=== PATIENT | female | born 1950 | race Caucasian/White ===

== ENCOUNTER → 2019-07-01 | Day surgery (SDC) | payer MEDICARE ==
--- NOTE | 2019-06-25 10:47 | Diagnostic Imaging Report ---
EXAMINATION: CHEST 2 VIEWS INDICATION: Pre-operative COMPARISON: None FINDINGS: LINES/TUBES:None LUNGS:The lungs are well-inflated. No focal consolidation or pulmonary edema. PLEURA:No pleural effusion or pneumothorax. MEDIASTINUM:The cardiomediastinal silhouette appears normal in size and shape. BONES/SOFT TISSUES:Median sternotomy wires, all except for the superiormost wire demonstrate multiple breaks. No acute fracture. Degenerative changes of the visualized spine. ABDOMEN:No free air under the diaphragm. IMPRESSION: No focal pneumonia or pulmonary edema. Multiple breaks of all except the superiormost median sternotomy wire, of uncertain significance depending on chronicity of surgery. Signed by: Marlen Bueno MD on 06/25/2019 10:44 AM
[2019-06-25 11:37] LABS: BASOPHILS % 0.4 % (0.0-1.0); EOSINOPHILS # (AUTO) 0.3 (0.0-0.4); HEMATOCRIT 45.6 % (34.2-44.1); HEMOGLOBIN 14.2 g/dL (12.0-16.0); LYMPHOCYTES # (AUTO) 2.7 (1.0-3.2); MEAN CORPUSCULAR HGB CONC 31.1 g/dL (31-35); MEAN CORPUSCULAR VOLUME 89.9 fL (81-99); MONOCYTES # (AUTO) 0.9 (0.2-0.8); MONOCYTES % 10.4 % (4.4-11.3); NEUTROPHILS # (AUTO) 4.6 (2.1-6.9); NEUTROPHILS % 54.1 % (38.7-80.0); PLATELET COUNT 289 x10e3/uL (140-360); RED BLOOD COUNT 5.07 x10e6/uL (3.6-5.1); RED CELL DISTRIBUTION WIDTH 13.4 % (11.7-14.4)
[2019-06-25 11:59] LABS: ANION GAP 19.3 mmol/L (8-16); CALCIUM 9.7 mg/dL (8.4-10.2); CREATININE, SERUM 1.02 mg/dL (0.57-1.11); POTASSIUM 4.3 mmol/L (3.5-5.1)
[~2019-07-01] MED LIST: ACETAMINOPHEN 1000 MG/100 ML 100 ML IV ONE; ASPIRIN81 MG PO; B COMPLEX1 EACH PO; BUMETANIDE1 MG PO; BUPIVACAINE HCL 0.5% INJ 30 ML VIAL INJ ONE; BUSPIRONE HCL30 MG; CEFAZOLIN SOD 1 GM/NS 50ML 50 ML IV ONE; CLOPIDOGREL75 MG PO; CYMBALTA30 MG PO; DEXAMETHASONE SOD PHOS INJ 4 MG/ML VIAL ONE; EPHEDRINE SULFATE INJ 50 MG/10 ML SYR ONE; FARXIGA PO; FENOFIBRATE145 MG PO; FENTANYL CITRATE/PF 100MCG/2 ML INJ ONE; FLAX SEED OIL1000 MG PO; GLYCOPYRROLATE INJ 1MG/ 5 ML SYR ONE; HUMALOG100 UNIT/1 SQ; INSULIN; LEVEMIR100 UNIT/1 SC; LIDOCAINE HCL 2% JELLY 5 ML TUBE ONE; LIDOCAINE HCL 2% LOCAL INJ 5 ML SDV VIAL INJ ONE; LIPITOR20 MG PO; LISINOPRIL; MIDAZOLAM HCL 2 MG/2 ML VIAL ONE; MUPIROCIN 2% OINT 22 GM TUBE ONE; NEOSTIGMINE 5 MG/5ML SYR ONE; ONDANSETRON HCL INJ 2MG/ML 2ML 2 MG/ML VIAL ONE; PANTOPRAZOLE SO40 MG PO; POTASSIUM CHLO20 ME1 PO; PROPOFOL IV EMULSION 10 MG/ML 20 ML VIAL ONE; ROCURONIUM BROMIDE 10 MG/ML 5ML VIAL ONE; SEVOFLURANE INHAL SOLN 250 ML PEN BTL ONE; SYNTHROID125 MCG PO; TRESIBA SQ; VICTOZA 2-0.6 MG/0.1 SC
--- OUTSIDE RECORDS SUMMARY | 2019-07-01 05:58 | XMS REPORT | Clinical Summary ---
Author Author [facility] Address Unknown Phone Unavailable Care Team Providers Care Environmental Restoration Planner Name Role Phone Artis Nunn MD PCP Allergies No Known Allergies Medications End Date Status Medication Sig Dispensed Refills Start Date Active insulin detemir (LEVEMIR) Inject 95 0 100 unit/mL injection Units under the skin 2 (two) times a day. Active insulin NPH and regular Inject 25 0 human (HumuLIN 70/30) 100 Units under unit/mL (70-30) injection the skin 3 (three) times a day. Active levothyroxine (SYNTHROID, Take 175 mcg 0 LEVOXYL) 175 mcg tablet by mouth every morning. Active pregabalin (LYRICA) 75 MG Take 75 mg by 0 capsule mouth 2 (two) times a day. Active clopidogrel (PLAVIX) 75 Take 75 mg by 0 mg tablet mouth daily. Active metoprolol tartrate Take 25 mg by 0 (LOPRESSOR) 25 mg tablet mouth 2 (two) times a day. Active busPIRone (BUSPAR) 10 MG Take 10 mg by 0 tablet mouth 3 (three) times a day. Active DULoxetine (CYMBALTA) 60 Take 60 mg by 0 MG capsule mouth daily. Active fenofibrate (TRICOR) 145 Take 145 mg 0 MG tablet by mouth daily. Active gabapentin (NEURONTIN) Take 300 mg 0 300 mg capsule by mouth 3 (three) times a day. Active lovastatin (MEVACOR) 40 Take 40 mg by 0 MG tablet mouth nightly. Active timolol (TIMOPTIC) 0.25 % 1 drop 2 0 ophthalmic solution (two) times a day. 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 08/13/2017 claudication Overview: Added automatically from request for surgery [id number] Family History Medical History Relation Name Comments Heart disease Father Heart disease Mother Relation Name Status Comments Father Mother Social History Date Tobacco Use Types Packs/Day Years Used Quit: 1997 Former Smoker Cigarettes 1 30 Smokeless Tobacco: Never Used Tobacco Cessation: Counseling Given: No Alcohol Use Drinks/Week oz/Week Comments No Sex Assigned at Date Recorded Not on file Industry Job Start Date Occupation Not on file Not on file Not on file Travel End Travel History Travel Start No recent travel history available. Last Filed Vital Signs Not on file Plan of Treatment Health Maintenance Due Date Last Done Comments BREAST CANCER SCREENING 2000 COLONOSCOPY SCREENING 2000 SHINGLES VACCINES (#1) 2000 65+ PNEUMOCOCCAL VACCINE 2015 (1 of 2 - PCV13) INFLUENZA VACCINE 06/26/2019 Implants Device Identifier Shelf Expiration Date Model / Serial / Lot Implanted Type Area Manufactur er 05/25/2019 [id number] / [id number] / [id number] Device Vasclr Clsr Baln Cath 10ml Cardiovasc Right: Artery, CARDINAL Lkng Syr 6fr 7fr Mynxgrip - ular Iliac [employer] [id number] Implants Implanted: 08/20/2017 (Quantity not on file) 05/25/2019 [id number] / [id number] / [id number] Device Vasclr Clsr Baln Cath 10ml Cardiovasc Right: Artery, ACCESS Lkng Syr 5fr Dyer Mynxgrip - ular Iliac CLOSURE [id number] Implants INC Implanted: 08/20/2017 (Quantity not on file) 06/19/2019 [id number] / [id number] / [id number] Stent Bili Iliac Exp Ld Reprcsd Peripheral Right: Artery, BSC Prmntd 8x37mm Metal - [id number] or Biliary Iliac PERIPHERAL Implanted: 08/20/2017 (Quantity not Stents INTERVENTI on file) ON VASCULAR ANISA Results Not on fileafter 06/30/2018 Insurance Type Payer Benefit Subscriber ID Effective Phone Address Plan / Dates Group HMO AETNA MEDICARE AETNA xxxxxxxx 2016-P MEDICARE resent HMO/PPO [facility] Advance Directives Patient has advance care planning documents on file. For more information, [place] contact: Brian Varela [address] [place] [address]
--- OUTSIDE RECORDS SUMMARY | 2019-07-01 05:58 | XMS REPORT ---
Author [facility] Address Unknown Phone Unavailable Care Team Providers Care Knife Grinder Name Role Phone MERYL MIMS Unavailable Unavailable Payers Payer Name Policy Type Policy Number Effective Date Expiration Date Problems This patient has no known problems. Allergies, Adverse Reactions, Alerts Allergy Name Allergy Type Status Severity Reaction(s) Onset Date Inactive Date Treating Clinician Comments No Known Allergies DA Active U 2018-08-20 00:00:00 No Known Allergies DA Active U 2018-01-19 00:00:00 Medications This patient has no known medications. Results Test Description Test Time Test Comments Text Results Atomic Results Result Comments CHEST 2 VIEWS 2019-06-25 10:39:00 [facility] [address] [place] [address] Patient Name: PRIYANK BRANHAM MR #: [id number] : 1950 Age/Sex: 69/F Req #: [id number] Adm Physician: Ordered by: MERYL MIMS MD Report #: [id number] Location: OR Room/Bed: Procedure: [id number] DX/CHEST 2 VIEWS Exam Date: 06/25/19 Exam Time: 1025 REPORT STATUS: Signed EXAMINATION: CHEST 2 VIEWS INDICATION: Pre-operative COMPARISON: None FINDINGS: LINES/TUBES:None LUNGS:The lungs are well-inflated. No focal consolidation or pulmonary edema. PLEURA:No pleural effusion or pneumothorax. MEDIASTINUM:The cardiomediastinal silhouette appears normal in size and shape. BONES/SOFT TISSUES:Median sternotomy wires, all except for the superiormost wire demonstrate multiple breaks. No acute fracture. Degenerative changes of the visualized spine. ABDOMEN:No free air under the diaphragm. IMPRESSION: No focal pneumonia or pulmonary edema. Multiple breaks of all except the superiormost median sternotomy wire, of uncertain significance depending on chronicity of surgery. Signed by: Denise Bueno MD on 06/25/2019 10:44 AM Dictated By: DENISE BUENO MD 1044 Transcribed By: KIMBERLY on 06/25/19 1044 COPY TO: MERYL MIMS MD
--- NOTE | 2019-07-01 07:00 | NUR ---
SPIRITUAL CARE - Pre-Surgery Assessment: Pt in bed. Pt reported supportive attention from family and friends. Intervention: I provided pastoral presence, hospitality, sympathetic listening, and prayer. I acquainted pt with availability of hoseman while hospitalized. Outcome: Pt expressed appreciation for visit. No need for follow up indicated at this time. [facility] O: [phone] Pager: [phone] ([phone] number calling from)
[2019-07-01 10:35] VITALS: BP 116/60
--- NOTE | 2019-07-01 11:33 | Operative Report ---
DATE OF PROCEDURE: 07/01/2019 SURGEON: Ruben Fowler MD PREOPERATIVE DIAGNOSES: 1. Cubital tunnel syndrome, left side. 2. Carpal tunnel syndrome, left side. POSTOPERATIVE DIAGNOSES: 1. Cubital tunnel syndrome, left side. 2. Carpal tunnel syndrome, left side. 3. Flexor tenosynovitis, left wrist. PROCEDURES: 1. Left ulnar nerve transposition. 2. Flexor pronator muscle flap. 3. Left hand open carpal tunnel release. 4. Flexor tenosynovectomy, left wrist. ANESTHESIA: General. HISTORY: The patient is a 69-year-old female with EMG-proven left hand cubital tunnel syndrome and left hand carpal tunnel syndrome. The risks, benefits, and alternatives of treatment were discussed with the patient, and they are prepared to undergo the procedures outlined. DESCRIPTION OF PROCEDURE: The patient was brought to the operating theater and after the induction of adequate general inhalation anesthesia was prepped and draped in a supine position. A timeout was performed by the entire operating room team. An incision was marked out from the medial epicondyle extending both proximally and distally for approximately 4-5 cm in the left limb. The left upper extremity was exsanguinated, and the tourniquet was inflated to a pressure of 250 mmHg. The incision was made through the skin and subcutaneous tissues, and all venous tributaries were controlled using the electrocautery. The incision was deepened through the subcutaneous tissue, and all the sensory, medial, antebrachial and cutaneous branches that were identified were protected and preserved throughout the dissection. At this point, the dissection was continued directly onto the medial epicondyle. The skin and subcutaneous tissues were then elevated off the medial epicondyle and the flexor pronator muscle mass. Proximal to the medial epicondyle the intramuscular septum was identified, and the ulnar nerve was identified just posterior to the intramuscular septum. The overlying tissue over the ulnar nerve was gently incised, taking care to protect and preserve the ulnar nerve. With the ulnar nerve in site, the overlying tissue was incised from proximal to distal through the cubital tunnel releasing the compressing structures of the ulnar nerve. At the distal aspect of the cubital tunnel, the flexor pronator muscle mass was divided, and the dissection of the ulnar nerve continued until the 1st and 2nd muscular branches were identified. At this point, the medial epicondyle was marked out and an incision approximately 1.5 cm from the epicondyle was made through the fascial and muscular tissues using the electrocautery. Hemostasis was made absolute using the electrocautery. The entire flexor pronator muscle mass was elevated out of its bed in order to allow transposition of the nerve. The nerve was then gently elevated out of the cubital tunnel using a Reji drain for traction. The posterior attachments were released, and the nerve was then transposed anteriorly. The transposition was noted to provide adequate relief of tension from the compressing structures on the nerve. The medial intramuscular septum was excised from the medial epicondyle and for a distance of several centimeters proximally in order to prevent compression. With the nerve transposed submuscularly, the elbow was placed through a range of motion and there was noted to be good gliding of the nerve and no kinking or acuity throughout its course. At this point, the flexor pronator muscle mass was repaired to the cuff of tissue on the medial epicondyle using 2-0 Vicryl in an interrupted horizontal mattress fashion. The elbow was placed through a range of motion again and the nerve was visualized and there was noted to be no compression. A 2.5 cm incision was marked out in the intrathenar space. The incision was deepened through the palmar fascia until the transverse carpal ligament was identified. The ligament was sharply sectioned, taking care to protect and preserve the median nerve underlying it. After the complete width of the ligament had been transected, the distal volar forearm fascia was divided under direct view. Proliferative flexor tenosynovium was noticed to encompass the median nerve and this was radically excised. After performing this maneuver, the nerve was noted to lie adequately decompressed. The wound was then copiously irrigated with bacteriostatic saline and closed in layers. A 4-0 Vicryl was used in an interrupted buried fashion to approximate the deep dermis and 5-0 nylon was used in an interrupted horizontal mattress fashion. A Marcaine field block was performed at the operative site. The tourniquet was deflated. All the fingers pinked up nicely and a sterile bulky conforming bandage was applied from the axilla to the hand. A fiberglass splint was fashioned to maintain the elbow at approximately 90 degrees of flexion and this was held in place with a loosely wrapped Aung wrap. The estimated blood loss of the procedure was negligible. The patient tolerated the procedure well and was brought to the recovery room in satisfactory condition and discharged with a postoperative instruction sheet as well as a followup appointment. MD BEAR [facility]/MARIBEL /[id number]
== END | disposition home or self-care (01) ==
LOC: OR 05:56
PROVIDERS: ATTEND Plastic Surgery
DX: G56.02 Carpal tunnel syndrome, left upper limb (principal); M65.842 Other synovitis and tenosynovitis, left hand; G56.22 Lesion of ulnar nerve, left upper limb; E78.5 Hyperlipidemia, unspecified; E03.9 Hypothyroidism, unspecified; I25.810 Atherosclerosis of coronary artery bypass graft(s) without angina pectoris; E11.9 Type 2 diabetes mellitus without complications; M54.5 Low back pain; F41.9 Anxiety disorder, unspecified; Z01.810 Encounter for preprocedural cardiovascular examination; Z01.812 Encounter for preprocedural laboratory examination; Z01.818 Encounter for other preprocedural examination; Z79.82 Long term (current) use of aspirin; Z79.4 Long term (current) use of insulin; Z79.02 Long term (current) use of antithrombotics/antiplatelets; Z79.84 Long term (current) use of oral hypoglycemic drugs; Z95.1 Presence of aortocoronary bypass graft; Z95.5 Presence of coronary angioplasty implant and graft
CPT/HCPCS: 25115; 36415 ×2; 64718; 71046; 80048; 82948; 85025; 93005; J0131; J0690; J1100; J2001 ×2; J2250; J2405; J2704; J3010; J3490

== ENCOUNTER → 2019-10-30 | Day surgery (SDC) | payer MEDICARE ==
[2019-10-27 14:35] LABS: BASOPHILS # (AUTO) 0.1 (0.0-0.1); BASOPHILS % 0.5 % (0.0-1.0); EOSINOPHILS # (AUTO) 0.2 (0.0-0.4); EOSINOPHILS % 2.1 % (0.0-6.0); HEMATOCRIT 44.6 % (34.2-44.1); HEMOGLOBIN 13.9 g/dL (12.0-16.0); LYMPHOCYTES # (AUTO) 2.3 (1.0-3.2); LYMPHOCYTES % 23.2 % (18.0-39.1); MEAN CORPUSCULAR HEMOGLOBIN 27.6 pg (28-32); MEAN CORPUSCULAR HGB CONC 31.2 g/dL (31-35); MEAN CORPUSCULAR VOLUME 88.7 fL (81-99); MONOCYTES # (AUTO) 0.7 (0.2-0.8); MONOCYTES % 6.8 % (4.4-11.3); NEUTROPHILS # (AUTO) 6.8 (2.1-6.9); NEUTROPHILS % 67.2 % (38.7-80.0); PLATELET COUNT 273 x10e3/uL (140-360); RED BLOOD COUNT 5.03 x10e6/uL (3.6-5.1)
[2019-10-27 14:56] LABS: ANION GAP 14.9 mmol/L (8-16); CREATININE, SERUM 1.17 mg/dL (0.57-1.11); POTASSIUM 3.9 mmol/L (3.5-5.1)
[~2019-10-30] MED LIST changes: +ACETAMINOPHEN 1000 MG/100 ML IV ONE; -BUSPIRONE HCL30 MG; +BUSPIRONE HCL30 MG PO; -EPHEDRINE SULFATE INJ 50 MG/10 ML SYR ONE; -GLYCOPYRROLATE INJ 1MG/ 5 ML SYR ONE; -LIDOCAINE HCL 2% JELLY 5 ML TUBE ONE; +MAGNESIUM OXID400 MG PO; -NEOSTIGMINE 5 MG/5ML SYR ONE; +NOVOLIN R100 UNIT/1 SQ; +PHENYLEPHRINE HCL 1% 10 MG/ML VIAL ONE; -ROCURONIUM BROMIDE 10 MG/ML 5ML VIAL ONE; +VITAMIN D310000 UNIT PO
--- NOTE | 2019-10-30 07:15 | NUR ---
SPIRITUAL CARE - Pre-Surgery Assessment: Pt in bed. Pt reported supportive attention from family and friends. Intervention: I provided pastoral presence, hospitality, sympathetic listening, and prayer. I acquainted pt with availability of drawing hand while hospitalized. Outcome: Pt expressed appreciation for visit. No need for follow up indicated at this time. [facility] O: [phone] Pager: [phone] ([phone] number calling from)
[2019-10-30 11:35] VITALS: BP 110/53
--- NOTE | 2019-10-30 12:28 | Operative Report ---
DATE OF PROCEDURE: 10/30/2019 SURGEON: Ruben Fowler MD PREOPERATIVE DIAGNOSES: 1. Cubital tunnel syndrome, right side. 2. Carpal tunnel syndrome, right side. POSTOPERATIVE DIAGNOSES: 1. Cubital tunnel syndrome, right side. 2. Carpal tunnel syndrome, right side. 3. Flexor tenosynovitis, right wrist. PROCEDURES: 1. Right ulnar nerve transposition. 2. Flexor pronator muscle flap. 3. Right open carpal tunnel release. 4. Flexor tenosynovectomy, right wrist. ANESTHESIA: General. HISTORY: The patient is a 69-year-old female with EMG-proven right cubital tunnel syndrome and right carpal tunnel syndrome. The risks, benefits, and alternatives of treatment were discussed with the patient, and they are prepared to undergo the procedures outlined. DESCRIPTION OF PROCEDURE: The patient was brought to the operating theater and after the induction of adequate general inhalation anesthesia was prepped and draped in a supine position. A timeout was performed by the entire operating room team. An incision was marked out from the medial epicondyle extending both proximally and distally for approximately 4-5 cm in the right limb. The right upper extremity was exsanguinated, and the tourniquet was inflated to a pressure of 250 mmHg. The incision was made through the skin and subcutaneous tissues, and all venous tributaries were controlled using the electrocautery. The incision was deepened through the subcutaneous tissue, and all the sensory, medial, antebrachial and cutaneous branches that were identified were protected and preserved throughout the dissection. At this point, the dissection was continued directly onto the medial epicondyle. The skin and subcutaneous tissues were then elevated off the medial epicondyle and the flexor pronator muscle mass. Proximal to the medial epicondyle the intramuscular septum was identified, and the ulnar nerve was identified just posterior to the intramuscular septum. The overlying tissue over the ulnar nerve was gently incised, taking care to protect and preserve the ulnar nerve. With the ulnar nerve in site, the overlying tissue was incised from proximal to distal through the cubital tunnel releasing the compressing structures of the ulnar nerve. At the distal aspect of the cubital tunnel, the flexor pronator muscle mass was divided, and the dissection of the ulnar nerve continued until the 1st and 2nd muscular branches were identified. At this point, the medial epicondyle was marked out and an incision approximately 1.5 cm from the epicondyle was made through the fascial and muscular tissues using the electrocautery. Hemostasis was made absolute using the electrocautery. The entire flexor pronator muscle mass was elevated out of its bed in order to allow transposition of the nerve. The nerve was then gently elevated out of the cubital tunnel using a Reji drain for traction. The posterior attachments were released, and the nerve was then transposed anteriorly. The transposition was noted to provide adequate relief of tension from the compressing structures on the nerve. The medial intramuscular septum was excised from the medial epicondyle and for a distance of several centimeters proximally in order to prevent compression. With the nerve transposed submuscularly, the elbow was placed through a range of motion and there was noted to be good gliding of the nerve and no kinking or acuity throughout its course. At this point, the flexor pronator muscle mass was repaired to the cuff of tissue on the medial epicondyle using 2-0 Vicryl in an interrupted horizontal mattress fashion. The elbow was placed through a range of motion again and the nerve was visualized and there was noted to be no compression. A 2.5 cm incision was marked out in the intrathenar space. The incision was deepened through the palmar fascia until the transverse carpal ligament was identified. The ligament was sharply sectioned, taking care to protect and preserve the median nerve underlying it. After the complete width of the ligament had been transected, the distal volar forearm fascia was divided under direct view. Proliferative flexor tenosynovium was noticed to encompass the median nerve and this was radically excised. After performing this maneuver, the nerve was noted to lie adequately decompressed. The wound was then copiously irrigated with bacteriostatic saline and closed in layers. A 4-0 Vicryl was used in an interrupted buried fashion to approximate the deep dermis and 5-0 nylon was used in an interrupted horizontal mattress fashion. A Marcaine field block was performed at the operative site. The tourniquet was deflated. All the fingers pinked up nicely and a sterile bulky conforming bandage was applied from the axilla to the hand. A fiberglass splint was fashioned to maintain the elbow at approximately 90 degrees of flexion and this was held in place with a loosely wrapped Aung wrap. The estimated blood loss of the procedure was negligible. The patient tolerated the procedure well and was brought to the recovery room in satisfactory condition and discharged with a postoperative instruction sheet as well as a followup appointment. MD BEAR Mills/MARIBEL /[id number]
== END | disposition home or self-care (01) ==
LOC: OR 05:44
PROVIDERS: ATTEND Plastic Surgery
DX: G56.21 Lesion of ulnar nerve, right upper limb (principal); G56.01 Carpal tunnel syndrome, right upper limb; M65.831 Other synovitis and tenosynovitis, right forearm; M48.00 Spinal stenosis, site unspecified; I25.810 Atherosclerosis of coronary artery bypass graft(s) without angina pectoris; E11.9 Type 2 diabetes mellitus without complications; G47.33 Obstructive sleep apnea (adult) (pediatric); E66.9 Obesity, unspecified; K21.9 Gastro-esophageal reflux disease without esophagitis; J30.2 Other seasonal allergic rhinitis; Z01.810 Encounter for preprocedural cardiovascular examination; Z01.812 Encounter for preprocedural laboratory examination; Z79.02 Long term (current) use of antithrombotics/antiplatelets; Z79.82 Long term (current) use of aspirin; Z79.4 Long term (current) use of insulin; Z79.84 Long term (current) use of oral hypoglycemic drugs; Z95.1 Presence of aortocoronary bypass graft
CPT/HCPCS: 25115; 36415 ×2; 64718; 80048; 82948; 85025; 93005; J0131; J0690; J1100; J2001; J2250; J2370; J2405; J2704; J3010